=== PATIENT | female | born 1990 | race American Indian/Alaskan Native ===

== ENCOUNTER 2017-05-18 14:48 | Outpatient (CLI) | payer OTHER ==
--- NOTE | 2017-05-19 13:34 | Ultrasound Report ---
TRANSABDOMINAL AND TRANSVAGINAL PELVIC ULTRASOUND: 05/18/17 14:48:00 CLINICAL: IUD localization. FINDINGS: Transabdominal and transvaginal pelvic ultrasound demonstrated a normal uterus measuring 9.0 x 3.9 x 4.5 cm. Normal uterine contour and echogenicity.A normal proliferative endometrium measures 9.5 AP thickness. No IUD identified. A normal right ovary with a 2.2 cm dominant follicle. The right ovary measures 3.1 x 2.3 x 2.9cm. Normal left ovary with a dominant 1.4 cm follicle. The left ovary measures 3.2 x 1.9 x 2.8cm. No adnexal mass. No free fluid. Normal urinary bladder. IMPRESSION: Normal pelvis with no IUD identified.
== END 2017-05-18 14:49 | disposition home or self-care (01) ==
LOC: US 14:48
PROVIDERS: ATTEND Obstetrics & Gynecology
DX: Z30.431 Encounter for routine checking of intrauterine contraceptive device (principal)
CPT/HCPCS: 76830; 76856